=== PATIENT | female | born 1930 | race Caucasian/White ===

== ENCOUNTER → 2016-12-09 | Outpatient (CLI) | payer MEDICARE, OTHER ==
--- NOTE | ~2016-12-09 | CT57 ---
[facility] A Service of [facility] RADIOLOGY TEXT RESULTS PATIENT: MONICA FERRARI LOCATION: [facility]AT : 30 UNIT #: [id number] AGE: [address]: James Ashley MD SEX: F ORDER DR: [id number] [facility] [address] [place], [place] [address] [id number] O MR#: [id number] [facility] #: [id number] NAME: MONICA FERRARI : 1930 SEX: F STUDY DATE/TIME: 12/09/2016 09:55 UNIT: [facility]AT ROOM: STUDY DESCRIPTION: CT Chest Wo Cont Attending Physician: James Ashley M.D. Referring Physician: James Ashley M.D. Ordering Physician: James Ashley M.D. Primary Care Physician: Roseline Juarez M.D. MEDICAL IMAGING REPORT This report is preliminary unless electronic signature is present EXAM CT chest without contrast, 12/09/2016 09:55 hours HISTORY 86-year-old woman with chronic cough for 3 months and hemoptysis. No prior malignancy. COMPARISON Chest film, 04/19/2010. No prior CT. TECHNIQUE Helical noncontrasted images were obtained from the thoracic inlet through the adrenal glands. Sagittal and coronal reconstructions were performed. Total exam DLP 588 mGy-cm. This CT exam was performed with one or more of the following radiation dose reduction techniques: automatic exposure control, adjustment of mA and/or kV according to patient size, and iterative reconstruction. FINDINGS Images through the thoracic inlet demonstrate mild heterogeneity in the thyroid gland diffusely with low attenuation lesion in the lower right lobe measuring up to 2.3 cm. A benign etiology is favored. Correlate with lab values. Consider further evaluation with ultrasound if previously not evaluated. Images through the chest demonstrate normal caliber aorta. The main pulmonary artery is within normal limits measuring 2.7 cm. The right and left pulmonary arteries are enlarged with right pulmonary artery 3.1 cm and left pulmonary artery 3.3 cm. This can be associated with pulmonary arterial hypertension. Cardiac chambers and pericardium are normal. The esophagus is normal. Lung window images demonstrate calcified granulomata in the lingula. There is airspace density in the left lower lobe and some [facility] A Service of [facility] RADIOLOGY TEXT RESULTS PATIENT: MONICA FERRARI LOCATION: [facility] : 30 UNIT #: [id number] AGE: [address]: James Ashley MD SEX: F ORDER DR: volume loss. Atelectasis is favored. An element of bronchitis/pneumonia cannot be excluded. The right lung is clear. Images through the upper abdomen demonstrate diffuse fatty replacement throughout the pancreas. There is no evidence of acute inflammation. The adrenal glands are normal. IMPRESSION 1. There is predominately linear density in the left lower lobe. The appearance favors atelectasis or scar over pneumonia. Mild peribronchiolar wall thickening however cannot be excluded. 2. There is diffuse calcification of the tracheobronchial cartilage, likely age related. 3. Moderate centrilobular emphysema without mass. 4. The main pulmonary artery is normal in caliber measuring 2.7 cm, however the right and left pulmonary arteries are enlarged measuring 3.1 and 3.3 cm respectively. This could indicate underlying pulmonary arterial hypertension. 5. Diffuse fatty replacement of the pancreas. Dictated by... Kimmy Frazier M.D. THIS IS AN ELECTRONICALLY VERIFIED REPORT Kimmy Frazier M.D. at 12/10/2016 9:24 AM [place] TD: 12/09/2016 17:39 JOB #: [id number] MEDICAL IMAGING REPORT Page 1 of 1 COPY
[2016-12-09 09:50] LABS: POC - CREATININE 1.36 mg/dL (0.44-1.03)
== END | disposition home or self-care (01) ==
LOC: CCAT 09:17
PROVIDERS: Family Medicine
DX: R05 Cough (principal); J98.4 Other disorders of lung; J43.2 Centrilobular emphysema; I28.8 Other diseases of pulmonary vessels; K86.89 Other specified diseases of pancreas
CPT/HCPCS: 71250; 82565